=== PATIENT | female | born 1965 | race Caucasian/White ===

== ENCOUNTER → 2019-05-06 | Outpatient (CLI) | payer BC, MEDICARE ==
--- NOTE | 2019-05-07 10:51 | MM ---
Reason for exam: screening (asymptomatic). Last mammogram was performed 3 years and 6 months ago. History: Patient history of other cancer. Retro-pectoral silicone gel implants, 2013. Taking estrogen for 3 years. Taking progesterone for 3 years. Physical Findings: A clinical breast exam by your physician is recommended on an annual basis and results should be correlated with mammographic findings. MG Screening Mammo Implant/CAD Bilateral CC, MLO, and ID view(s) were taken. Prior study comparison: November 15, 2015, bilateral MG diag mamm implants PABLO w CAD. December 08, 2008, bilateral digital screening mammogram. There are scattered fibroglandular densities. Benign appearing calcifications in the right breast. No suspicious abnormality. Bilteral retropectoral silicone implants. No significant changes when compared with prior studies. ASSESSMENT: Benign, BI-RAD 2 RECOMMENDATION: Routine screening mammogram of both breasts in 1 year.
== END ==
LOC: RADMAMWWP 07:43
PROVIDERS: ATTEND Obstetrics & Gynecology
DX: Z12.31 Encounter for screening mammogram for malignant neoplasm of breast (principal); Z98.82 Breast implant status
CPT/HCPCS: 77067

== ENCOUNTER 2019-09-18 07:26 | Emergency (ER) | payer BC, MEDICARE ==
[2019-09-18 07:35] VITALS: BP 154/97; PULSE 91; RESP 18; TEMP 97.9
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
--- NOTE | 2019-09-18 08:19 | XR ---
EXAMINATION TYPE: XR elbow complete RT , 3 VIEWS DATE OF EXAM ORDERED: 09/18/2019 HISTORY: fall, pulling injury, limited rom. COMPARISON: None. FINDINGS: No fracture, dislocation or elbow joint effusion is seen. IMPRESSION: NO ACUTE OSSEOUS LESION.
--- NOTE | 2019-09-18 08:19 | XR ---
EXAMINATION TYPE: XR shoulder complete RT , 3 VIEWS DATE OF EXAM ORDERED: 09/18/2019 HISTORY: fall, pulling injury, limited rom. COMPARISON: None. FINDINGS: No fracture, dislocation or other acute osseous lesion is seen. IMPRESSION: NO ACUTE OSSEOUS LESION.
[2019-09-18] MEDS ORDERED: ACET/COD 300 MG/30 MG STARTER PACK 6 TAB BTL PO STA (08:35)
[2019-09-18] MEDS ORDERED: IBUPROFEN 600 MG TAB PO STA (08:35)
== END 2019-09-18 08:51 | disposition home or self-care (01) ==
LOC: EC 07:26
DX: S43.401A Unspecified sprain of right shoulder joint, initial encounter (principal); Z87.891 Personal history of nicotine dependence; W16.112A Fall into natural body of water striking water surface causing other injury, initial encounter; Y92.89 Other specified places as the place of occurrence of the external cause; Y93.89 Activity, other specified
CPT/HCPCS: 99283

== ENCOUNTER → 2021-01-11 | Outpatient (CLI) | payer BC, MEDICARE ==
--- NOTE | 2021-01-12 12:25 | MM ---
Reason for exam: screening (asymptomatic). Last mammogram was performed 1 year and 8 months ago. History: Patient is postmenopausal and history of other cancer. Retro-pectoral silicone gel implants, 2013. Taking estrogen for 5 years beginning at age 50. Taking progesterone for 5 years beginning at age 50. Physical Findings: A clinical breast exam by your physician is recommended on an annual basis and results should be correlated with mammographic findings. MG 3D Screen Mammo Imp/Cad Bilateral CC, MLO, and ID view(s) were taken. Prior study comparison: May 06, 2019, bilateral MG screening mammo implant/CAD. November 15, 2015, bilateral MG diag mamm implants PABLO w CAD. There are scattered fibroglandular densities. Stable benign calcifications. Breast implants are intact. No significant changes when compared with prior studies. ASSESSMENT: Benign, BI-RAD 2 RECOMMENDATION: Routine screening mammogram of both breasts in 1 year.
== END | disposition home or self-care (01) ==
LOC: RADMAMWWP 07:11
PROVIDERS: ATTEND Obstetrics & Gynecology
DX: Z12.31 Encounter for screening mammogram for malignant neoplasm of breast (principal)
CPT/HCPCS: 77063; 77067

== ENCOUNTER 2021-05-24 17:46 | Emergency (ER) | payer BC, MEDICARE ==
[2021-05-24 18:13] VITALS: RESP 18; TEMP 98.7
[2021-05-24 18:45] LABS: Appearance,Urine Cloudy (Clear); Bilirubin,Urine Negative (Negative); Blood,Urine Trace (Negative); Color,Urine Light Yellow; Glucose,Urine (UA) Negative (Negative); Ketones,Urine Negative (Negative); Leukocyte Esterase,Urine Trace (Negative); Nitrite,Urine Negative (Negative); PH, Urine 6.5 (5.0-8.0); Protein,Urine Negative (Negative); Specific Gravity,Urine 1.003 (1.001-1.035); Squamous Epithelial Cell,Urine <1 /hpf (0-4); Urobilinogen,Urine <2.0 mg/dL (<2.0)
--- NOTE | 2021-05-24 19:21 | XR ---
EXAMINATION TYPE: XR KUB DATE OF EXAM: 05/24/2021 6:33 PM INDICATION: Patient age:Female; 55 years old; Reason for study: abdominal pain; COMPARISON: Abdominal radiograph 07/29/2011, CT abdomen pelvis 07/29/2011. TECHNIQUE: One radiographic view of the abdomen was obtained. FINDINGS: The bowel gas pattern is nonspecific without dilated loops of small or large bowel The oss eous structures are intact. Fixation hardware noted involving L4 and L5. No abnormal calcifications a re present. Fecal material and gas are demonstrated throughout the colon and rectum. IMPRESSION: Nonspecific bowel gas pattern without radiographic evidence for acute process.
[2021-05-24 20:37] LABS: Albumin 4.5 g/dL (3.5-5.0); Basophils % (A) 1 %; Calcium 9.3 mg/dL (8.4-10.2); Eosinophils # (A) 0.2 k/uL (0-0.7); Eosinophils % (A) 2 %; HCT 42.5 % (34.0-46.0); HGB 14.5 gm/dL (11.4-16.0); Lymphocytes # (A) 2.3 k/uL (1.0-4.8); Lymphocytes % (A) 28 %; MCH 29.6 pg (25.0-35.0); MCV 87.1 fL (80.0-100.0); Mean Platelet Volume 7.2; Monocytes # (A) 0.3 k/uL (0-1.0); Monocytes % (A) 3 %; Neutrophils # (A) 5.3 k/uL (1.3-7.7); Neutrophils % (A) 64 %; Platelet Count 238 k/uL (150-450); Potassium 4.1 mmol/L (3.5-5.1); RBC 4.88 m/uL (3.80-5.40); RDW 13.7 % (11.5-15.5); Total Bilirubin 0.7 mg/dL (0.2-1.3); Total Protein 7.6 g/dL (6.3-8.2); WBC 8.2 k/uL (3.8-10.6)
--- NOTE | 2021-05-24 21:23 | ED ---
Abdominal Pain HPI - General Source: patient Mode of arrival: ambulatory Limitations: no limitations <Melodie Mary - Last Filed: 05/25/21 03:52> <Chaim Briggs - Last Filed: 05/25/21 12:54> - General Chief Complaint: Abdominal Pain Stated Complaint: Abd pain Time Seen by Provider: 05/24/21 19:33 - History of Present Illness Initial Comments: Patient is a 55-year-old female presenting for evaluation of abdominal pain. Pain is a constant cramping pain that has been persistent for 2 days. When asked if the pain changes with food the patient states "I have not eaten". States that it occasionally radiates to the back. Patient admits to nausea and no vomiting. Patient states last bowel movement was this morning and "I may be constipated". When asked if she consumed any EtOH she states that the last time she drank was Friday. Patient has not tried symptomatic relief at home. Denies fever or chills, diarrhea, chest pain, shortness of breath, headache, dysuria, urgency, frequency, hematuria, hematemesis, hematochezia, hemoptysis, cough, recent alcohol consumption, abdominal surgeries. (Melodie Mary) - Related Data Previous Rx's Medication Instructions Recorded Ibuprofen [Motrin] 600 mg PO Q8HR PRN #20 tab 09/18/19 Omeprazole 20 mg PO DAILY PRN #20 cap 05/24/21 Allergies Allergy/AdvReac Type Severity Reaction Status Date / Time No Known Allergies Allergy Verified 09/18/19 07:35 Review of Systems ROS Other: All systems not noted in ROS Statement are negative. <Mleodie Mary - Last Filed: 05/25/21 03:52> ROS Other: All systems not noted in ROS Statement are negative. <Chaim Briggs - Last Filed: 05/25/21 12:54> ROS Statement: Those systems with pertinent positive or pertinent negative responses have been documented in the HPI. Past Medical History Past Medical History: Thyroid Disorder History of Any Multi-Drug Resistant Organisms: None Reported Past Surgical History: Orthopedic Surgery Additional Past Surgical History / Comment(s): partial thyroidectomy Past Psychological History: No Psychological Hx Reported Past Alcohol Use History: Occasional <Melodie Mary - Last Filed: 05/25/21 03:52> General Exam Limitations: no limitations General appearance: alert, in no apparent distress Head exam: Present: atraumatic, normocephalic, normal inspection Eye exam: Present: normal appearance, PERRL, EOMI. Absent: scleral icterus, conjunctival injection, periorbital swelling ENT exam: Present: normal exam, mucous membranes moist Neck exam: Present: normal inspection Respiratory exam: Present: normal lung sounds bilaterally. Absent: respiratory distress, wheezes, rales, rhonchi, stridor Cardiovascular Exam: Present: regular rate, normal rhythm, normal heart sounds. Absent: systolic murmur, diastolic murmur, rubs, gallop, clicks GI/Abdominal exam: Present: soft, normal bowel sounds. Absent: distended, tend erness, guarding, rebound, rigid Back exam: Absent: CVA tenderness (R), CVA tenderness (L) Neurological exam: Present: alert, oriented X3, CN II-XII intact Psychiatric exam: Present: normal affect, normal mood Skin exam: Present: warm, dry, intact, normal color. Absent: rash <Melodie Mary - Last Filed: 05/25/21 03:52> Course Vital Signs 05/24/21 05/24/21 18:07 23:22 Temperature 98.7 F Pulse Rate 111 H 84 Respiratory 18 18 Rate Blood Pressure 146/78 138/89 O2 Sat by Pulse 99 99 Oximetry Medical Decision Making - Lab Data Result diagrams: 05/24/21 20:16 05/24/21 20:16 When compared to previous EKG there are: no significant change Interpretation: no acute changes <Melodie Mary - Last Filed: 05/25/21 03:52> - Lab Data Result diagrams: 05/24/21 20:16 05/24/21 20:16 <Chaim Briggs - Last Filed: 05/25/21 12:54> - Medical Decision Making Patient is a 55-year-old female presenting with chief complaint of abdominal pain. Pain is a constant cramping pain that began around 2 days ago and is located in the epigastric region. Pain is not changed by position or exertion. She states she has not been eating so she does not know if it is changed with meals. The differential includes gastritis, cholecystitis, pancreatitis. Lab work is within normal limits. UA shows no signs of infection. On physical exam there is very minimal tenderness with deep palpation in the epigastric region. X-ray showed no acute process. EKG was unremarkable. Patient stated the GI cocktail and Pepcid provided some but not total relief. While likely gastritis, the potential for gallbladder etiology is still present, and I explained to patient symptoms of cholecystitis. When offered a gallbladder ultrasound the patient states that she has been here long enough and wanted to go home. She agreed to an outpatient ultrasound. Return to ER experiencing worsening symptoms or new onset alarming symptoms such as fever, chills, chest pain, shortness of breath, vomiting. Provided with prescription for omeprazole 20 mg daily. Follow up with primary care in 1-2 days. Answers all questions. Patient conveyed verbal understanding and agreed to the plan. I discussed this case with my attending Dr. Briggs. (Melodie Mary) I saw this patient in conjunction with the physician drilling assistant. I performed independent history and physical exam. Agree with case management. (Chaim Briggs) - Lab Data Lab Results 05/24/21 05/24/21 05/24/21 Range/Units 18:24 20:16 20:16 WBC 8.2 (3.8-10.6) k/uL RBC 4.88 (3.80-5.40) m/uL Hgb 14.5 (11.4-16.0) gm/dL Hct 42.5 (34.0-46.0) % MCV 87.1 (80.0-100.0) fL MCH 29.6 (25.0-35.0) pg MCHC 34.0 (31.0-37.0) g/dL RDW 13.7 (11.5-15.5) % Plt Count 238 (150-450) k/uL MPV 7.2 Neutrophils % 64 % Lymphocytes % 28 % Monocytes % 3 % Eosinophils % 2 % Basophils % 1 % Neutrophils # 5.3 (1.3-7.7) k/uL Lymphocytes # 2.3 (1.0-4.8) k/uL Monocytes # 0.3 (0-1.0) k/uL Eosinophils # 0.2 (0-0.7) k/uL Basophils # 0.0 (0-0.2) k/uL Sodium 136 L (137-145) mmol/L Potassium 4.1 (3.5-5.1) mmol/L Chloride 101 (98-107) mmol/L Carbon Dioxide 25 (22-30) mmol/L Anion Gap 10 mmol/L BUN 12 (7-17) mg/dL Creatinine 0.96 (0.52-1.04) mg/dL Est GFR (CKD-EPI)AfAm 78 (>60 ml/min/1.73 sqM) Est GFR (CKD-EPI)NonAf 67 (>60 ml/min/1.73 sqM) Glucose 86 (74-99) mg/dL Calcium 9.3 (8.4-10.2) mg/dL Total Bilirubin 0.7 (0.2-1.3) mg/dL AST 22 (14-36) U/L ALT 33 (4-34) U/L Alkaline Phosphatase 91 (38-126) U/L Total Protein 7.6 (6.3-8.2) g/dL Albumin 4.5 (3.5-5.0) g/dL Amylase 39 (30-110) U/L Lipase 84 (23-300) U/L Urine Color Light Yellow Urine Appearance Cloudy H (Clear) Urine pH 6.5 (5.0-8.0) Ur Specific [place] 1.003 (1.001-1.035) Urine Protein Negative (Negative) Urine Glucose (UA) Negative (Negative) Urine Ketones Negative (Negative) Urine Blood Trace H (Negative) Urine Nitrite Negative (Negative) Urine Bilirubin Negative (Negative) Urine Urobilinogen <2.0 (<2.0) mg/dL Ur Leukocyte Esterase Trace H (Negative) Ur Squamous Epith Cells <1 (0-4) /hpf Disposition Is patient prescribed a controlled substance at d/c from ED?: No Time of Disposition: 23:02 <Melodie Mary - Last Filed: 05/25/21 03:52> <Chaim Briggs - Last Filed: 05/25/21 12:54> Clinical Impression: Abdominal pain, Gastritis Disposition: HOME SELF-CARE Condition: Good Instructions (If sedation given, give patient instructions): Low Fat Diet (ED), Abdominal Pain (ED) Additional Instructions: Follow-up with PCP in one to 2 days. Report back to [facility] for outpatient gallbaldder US. Report back to ER with worsening symptoms or new onset alarming symptoms such as vomiting, fever, chills, chest pain, shortness of breath. Prescriptions: Omeprazole 20 mg PO DAILY PRN #20 cap PRN Reason: Gi Upset Referrals: Pauline Hoff DO [Primary Care Provider] - 1-2 days
[2021-05-24] MEDS ORDERED: FAMOTIDINE 20 MG/2 ML VIAL IV STA (21:26)
[2021-05-24] MEDS ORDERED: MAG HYDROX/AL HYDROX/SIMETH 30 ML, HYOSCYAMINE ELIXIR 10 ML, LIDOCAINE VISCOUS 2% 10 ML PO STA ×3 (21:27)
[2021-05-24 23:24] VITALS: BP 138/89; PULSE 84
== END 2021-05-24 23:23 | disposition home or self-care (01) ==
LOC: EC 17:46
DX: K29.70 Gastritis, unspecified, without bleeding (principal); E07.9 Disorder of thyroid, unspecified
CPT/HCPCS: 36415; 74018; 80053; 81001; 82150; 83690; 85025; 93005; 96374; 99284

== ENCOUNTER → 2022-07-04 | Outpatient (CLI) | payer BC, MEDICARE ==
--- NOTE | 2022-07-05 08:04 | MM ---
Reason for Exam: Hx of breast augmentation, asymptomatic. Last mammogram was performed 1 year(s) and 6 month(s) ago. Patient History: Menarche at age 11. First Full-Term at age 24. Postmenopausal. Other cancer. Currently using Estrogen, beginning at age 50 for 5 years. Currently using Progesterone, beginning at age 50 for 5 years. 2013, Implant(s). Risk Values: Humaira 5 year model risk: 1.2%. NCI Lifetime model risk: 8.1%. Prior Study Comparison: 11/15/2015 Bilateral Diagnostic Mammogram, [facility]. 05/06/2019 Bilateral Screening Mammogram, [facility]. 01/11/2021 Bilateral Screening Mammogram, [facility]. Tissue Density: There are scattered fibroglandular densities. Findings: Analyzed By CAD. There is no suspicious group of microcalcifications or new suspicious mass in either breast. Breast implants are intact. Stable benign calcifications within the right breast. Overall Assessment: Benign, BI-RAD 2 Management: Screening Mammogram of both breasts in 1 year. A clinical breast exam by your physician is recommended on an annual basis and results should be correlated with mammographic findings. Electronically signed and approved by: Parag Torres D.O.
== END | disposition home or self-care (01) ==
LOC: RADMAMWWP 07:14
PROVIDERS: ATTEND Obstetrics & Gynecology
DX: Z12.31 Encounter for screening mammogram for malignant neoplasm of breast (principal); Z78.0 Asymptomatic menopausal state
CPT/HCPCS: 77063; 77067

== ENCOUNTER → 2023-07-30 | Outpatient (CLI) | payer BC, MEDICARE ==
--- NOTE | 2023-07-31 19:01 | MM ---
Reason for Exam: Hx of breast augmentation, asymptomatic. Last mammogram was performed 1 year(s) and 1 month(s) ago. Patient History: Menarche at age 11. First Full-Term at age 24. Postmenopausal. Other cancer. Currently using Estrogen, beginning at age 50 for 5 years. Currently using Progesterone, beginning at age 50 for 5 years. 2013, Implant(s). Risk Values: Humaira 5 year model risk: 1.3%. NCI Lifetime model risk: 7.7%. Prior Study Comparison: 11/15/2015 Bilateral Diagnostic Mammogram, [facility]. 05/06/2019 Bilateral Screening Mammogram, [facility]. 01/11/2021 Bilateral Screening Mammogram, [facility]. 07/04/2022 Bilateral MG 3D screen mammo imp/cad., [facility]. Tissue Density: There are scattered areas of fibroglandular density. Findings: Analyzed By CAD. Bilateral retropectoral silicone implants. Unchanged coarse calcifications on the right. There is no suspicious group of microcalcifications or new suspicious mass in either breast. Overall Assessment: Benign, BI-RAD 2 Management: Screening Mammogram of both breasts in 1 year. . Patient should continue monthly self-breast exams. A clinical breast exam by your physician is recommended on an annual basis. This exam should not preclude additional follow-up of suspicious palpable abnormalities. Note on Humaira scores and lifetime risk: 1. A Humaira score greater than 3% is considered moderate risk. If this is the case, consider specialist referral to assess eligibility for a risk reducing agent. 2. If overall lifetime risk for the development of breast cancer is 20% or higher, the patient may qualify for future screening with alternating mammogram and breast MRI. Electronically signed and approved by: Olivia Narvaez M.D. Radiologist
== END | disposition home or self-care (01) ==
LOC: RADMAMWWP 07:17
PROVIDERS: ATTEND Obstetrics & Gynecology
DX: Z12.31 Encounter for screening mammogram for malignant neoplasm of breast (principal); Z78.0 Asymptomatic menopausal state; Z98.82 Breast implant status
CPT/HCPCS: 77063; 77067